=== PATIENT | female | born 1960 | race Hispanic/Latino ===

== ENCOUNTER → 2024-01-23 | Outpatient (CLI) | payer BC ==
--- NOTE | 2024-01-23 10:07 | HMCIMG ---
US SOFT TISSUE LOWER EXTREMITY REASON: sebaceous cyst COMPARISON: None TECHNIQUE: Ultrasound was performed of the focal mass of the left upper posterior thigh. FINDINGS: There is a well-circumscribed 11 x 12 x 6 mm nodule present in the subcutaneous soft tissues at the junction of the dermis and epidermis. Findings appear typical of sebaceous cyst. Exam is otherwise unremarkable. IMPRESSION: 1. Findings consistent with a 12 mm sebaceous cyst in the area in question.
== END | disposition home or self-care (01) ==
LOC: RAH 08:17
PROVIDERS: ATTEND Pediatrics
DX: L72.3 Sebaceous cyst (principal)
CPT/HCPCS: 76882